=== PATIENT | female | born 1995 | race Two or more races ===

== ENCOUNTER 2019-09-30 15:46 | Emergency (ER) | payer OTHER ==
[~2019-09-30] VITALS: Ht 157.5 cm; Wt 77.1 kg
--- NOTE | 2019-09-30 15:53 | NUR ---
CAME IN FOR CONSTANT R FLANK PAIN x 1MONTH AND R HAND NUMBNESS x 2 MONTHS, TO ER BED 2, HOOKED TO MONITOR, CHANGED TO HOSP GOWN, WARM BLANKET PROVIDED, PATIENT AAO x 4 BREATHING EVEN AND UNLABORED, AWAITING MD MALONEY.
--- NOTE | 2019-09-30 15:56 | NUR ---
URINE SAMPLE COLLECTED AND SENT TO LAB.
--- NOTE | 2019-09-30 16:12 | NUR ---
DR DELGADO AT BEDSIDE
[2019-09-30] MEDS ORDERED: IBUPROFEN 600 MG TABLET PO ONE ×2 (16:18→16:30)
[2019-09-30 16:24] LABS: APPEARANCE,URINE Clear (CLEAR); BILIRUBIN,URINE Negative (NEGATIVE); BLOOD, URINE Negative Ery/uL (NEGATIVE); COLOR,URINE Yellow (YELLOW); KETONES,URINE Negative (NEGATIVE); LEUKOCYTE ESTERASE ,URINE Negative (NEGATIVE); NITRITE, URINE Negative (NEGATIVE); PH,URINE 7.5 (5.0-8.0); PROTEIN,URINE Negative (NEGATIVE); UGLUCOSE Negative (NEGATIVE); UROBILINOGEN,URINE 0.2 EU/dL (0.2)
--- NOTE | 2019-09-30 17:38 | NUR ---
Patient discharged to home in stable condition. Written and verbal after care instructions given. Patient verbalizes understanding of instruction.
[2019-09-30 17:39] VITALS: BP 116/71
== END 2019-09-30 17:39 | disposition home or self-care (01) ==
LOC: ER 15:49
DX: S29.012A Strain of muscle and tendon of back wall of thorax, initial encounter (principal); X58.XXXA Exposure to other specified factors, initial encounter; Y93.89 Activity, other specified; Y92.89 Other specified places as the place of occurrence of the external cause; Y99.8 Other external cause status
CPT/HCPCS: 71100-TC; 81000-TC; 87086-TC